=== PATIENT | male | born 1965 ===

== ENCOUNTER 2017-06-21 20:32 | Emergency (ER) | payer OTHER ==
[2017-06-21 20:51] VITALS: RESP 18
[2017-06-21 21:15] LABS: SQUAMOUS EPITHIAL 1 /hpf (0-5); URINE BACTERIA RARE (<OCC); URINE BILIRUBIN NEGATIVE (NEGATIVE); URINE BLOOD 3+ (NEGATIVE); URINE CALCIUM OXALATE CRYSTALS RARE /hpf (<OCC); URINE CLARITY Hazy (Clear); URINE COLOR Yellow (YELLOW); URINE GLUCOSE (UA) NORMAL (Normal); URINE LEUKOCYTE ESTERASE TRACE Leu/uL (Negative); URINE NITRATE NEGATIVE (NEGATIVE); URINE PROTEIN 1+ mg/dL (NEGATIVE)
[2017-06-21] MEDS ORDERED: Sodium Chloride 0.9% 1,000 ML IV ONE (21:33)
[2017-06-21 22:03] LABS: BASO # 0.1 K/uL (0.0-0.2); BASO % 0.5 % (0.0-2.0); EOS # 0.1 K/uL (0.0-0.7); EOS % 0.8 % (0.0-4.0); LYMPH # 1.5 K/uL (1.0-4.3); LYMPH % 9.6 % (20.0-40.0); MEAN CELL VOLUME 92.4 fL (80.0-94.0); MEAN CORPUSCULAR HEMOGLOBIN 31.4 pg (27.0-31.0); MEAN PLATELET VOLUME 8.5 fL (7.2-11.7); MONO # 0.8 K/uL (0.0-0.8); MONO % 5.3 % (0.0-10.0); NEUT % 83.8 % (50.0-75.0); PLATELET COUNT 258 K/uL (130-400); RBC 4.48 Mil/uL (4.40-5.90); RED CELL DISTRIBUTION WIDTH 13.2 % (11.5-14.5); WHITE BLOOD COUNT 15.5 K/uL (4.8-10.8)
[2017-06-21 22:04] LABS: HEMOGLOBIN 14.1 g/dL (12.0-18.0)
[2017-06-21 22:13] LABS: ALB/GLOB RATIO 1.3 (1.0-2.1); ALBUMIN 4.4 g/dL (3.5-5.0); ALT/SGPT 40 U/L (21-72); AST/SGOT 28 U/L (17-59); BLOOD UREA NITROGEN 11 mg/dL (9-20); CALCIUM 9.4 mg/dl (8.6-10.4); GFR AFRICAN-AMERICAN > 60; GFR NON-AFRICAN AMERICAN > 60; LIPASE 100 U/L (23-300)
[2017-06-21] MEDS ORDERED: Sodium Chloride 0.9% 1,000 ML IV STA (22:27)
[2017-06-21 22:32] LABS: BANDS 1 % (0-2); EOSINOPHIL 1 % (0-4); HYPOCHROMIC SLIGHT; LYMPHOCYTE 13 % (20-40); MONOCYTE 2 % (0-10); NEUTROPHIL 83 % (50-75); PLATELET ESTIMATE NORMAL (NORMAL); TOTAL CELLS COUNTED 100
--- NOTE | 2017-06-21 22:36 | CT ---
EXAM: CT Abdomen and Pelvis Without Intravenous Contrast CLINICAL HISTORY: 51 years old, male; Pain; Abdominal pain; Localized; Right; Additional info: Suspect r renal colic vs ap TECHNIQUE: Axial computed tomography images of the abdomen and pelvis without intravenous contrast. All CT scans at this facility use one or more dose reduction techniques, viz.: automated exposure control; ma/kV adjustment per patient size (including targeted exams where dose is matched to indication; i.e. head); or iterative reconstruction technique. Coronal and sagittal reformatted images were created and reviewed. COMPARISON: No relevant prior studies available. FINDINGS: Limitations: Motion artifact - mild. Lack of intravenous contrast. Lower thorax: Probable small hiatal hernia. Elevated LEFT hemidiaphragm. ABDOMEN: Liver: Unremarkable. Gallbladder and bile ducts: No calcified stones. No ductal dilation. Pancreas: Unremarkable. No ductal dilation. Spleen: No splenomegaly. Adrenals: No mass. Kidneys and ureters: Mild stranding about RIGHT kidney. Small calculus within RIGHT kidney. [id number] pelvocaliectasis of RIGHT kidney. Mild to moderately dilated RIGHT ureter. 0.4 x 0.4 x 0.3 cm calculus at/near RIGHT ureterovesical junction. Stomach and bowel: Segmental areas of probable underdistention of colon. No definite mural thickening. No obstruction. Appendix: Normal caliber. No inflammation. PELVIS: Bladder: Apparent mild bladder wall thickening. Incomplete distention, limiting evaluation. No stones. Reproductive: Unremarkable as visualized. ABDOMEN and PELVIS: Intraperitoneal space: No significant fluid collection. No free air. Bones/joints: No acute fracture. Soft tissues: Unremarkable. Vasculature: Minimal atherosclerotic disease of aorta. No aneurysm. Lymph nodes: No pathologically enlarged lymph nodes. IMPRESSION: 1. RIGHT distal ureteral calculus with [id number] hydroureteronephrosis. 2. Mild bladder wall thickening versus underdistention. Clinical correlation is needed. 3. Incidental/non-acute findings are described above.
[2017-06-21] MEDS ORDERED: Sodium Chloride 0.9% 1,000 ML ONE (22:45)
--- NOTE | 2017-06-21 23:08 | C.PDOC ---
History Of Present Illness 51yo male, presents to ED for evaluation of right sided abdominal pain radiating to his right groin. Patient states pain is colicky in nature and is severe at times. He denies any history of renal colic. No other medical complaints. Time Seen by Provider: 06/21/17 21:24 Chief Complaint (Nursing): Abdominal Pain History Per: Patient History/Exam Limitations: no limitations Onset/Duration Of Symptoms: Persistent Location Of Pain/Discomfort: RUQ, RLQ Radiation Of Pain To:: Other (right groin) Quality Of Discomfort: "Pain" Past Medical History Reviewed: Historical Data, Nursing Documentation, Vital Signs Vital Signs: Last Vital Signs Temp 98.4 F 06/21/17 20:47 Pulse 69 06/21/17 20:47 Resp 18 06/21/17 20:47 BP 143/92 H 06/21/17 20:47 Pulse Ox 96 06/21/17 23:57 - Medical History PMH: No Chronic Diseases Surgical History: No Surg Hx - [facility] Procedures REPOSITION RIGHT TIBIA WITH INT FIX, OPEN APPROACH (03/27/16) Family History: States: Unknown Family Hx - Social History Hx Tobacco Use: No Hx Alcohol Use: Yes Hx Substance Use: No - Immunization History Hx Tetanus Toxoid Vaccination: No Hx Influenza Vaccination: No Hx Pneumococcal Vaccination: No Review Of Systems Except As Marked, All Systems Reviewed And Found Negative. Constitutional: Negative for: Fever, Chills Gastrointestinal: Positive for: Abdominal Pain Genitourinary: Positive for: Other (right sided groin pain) Physical Exam - Physical Exam Appears: Non-toxic, Other (writhing in bed) Skin: Warm, Dry Eye(s): bilateral: Normal Inspection Neck: Supple Chest: Symmetrical Cardiovascular: Rhythm Regular Respiratory: Normal Breath Sounds Gastrointestinal/Abdominal: Bowel Sounds, Soft, No Tenderness Back: No CVA Tenderness, No Vertebral Tenderness Male Genital: Normal Inspection, No Other (groin tenderness) Neurological/Psych: Oriented x3 ED Course And Treatment - Laboratory Results Result Diagrams: 06/21/17 21:33 06/21/17 22:04 Lab Interpretation: Abnormal (UA 281 RBC's) O2 Sat by Pulse Oximetry: 96 (RA) Pulse Ox Interpretation: Normal - CT Scan/US CT ABd/Pelvis Other Rad Studies (CT/US): Interpreted By Me (R distal UVJ stone 4mm), Radiology Report Reviewed Progress Note: IVF, toradol IV Reevaluation Time: 23:43 Reassessment Condition: Improved Medical Decision Making Medical Decision Making: Impression: first episode of renal colic Plan: -- Toradol 30mg IVP -- IV Fluids -- Labs -- CT Abdomen w/o contrast FINDINGS: Limitations: Motion artifact - mild. Lack of intravenous contrast. Lower thorax: Probable small hiatal hernia. Elevated LEFT hemidiaphragm. ABDOMEN: Liver: Unremarkable. Gallbladder and bile ducts: No calcified stones. No ductal dilation. Pancreas: Unremarkable. No ductal dilation. Spleen: No splenomegaly. Adrenals: No mass. Kidneys and ureters: Mild stranding about RIGHT kidney. Small calculus within RIGHT kidney. Kbef-nl-ejxqaris pelvocaliectasis of RIGHT kidney. Mild to moderately dilated RIGHT ureter. 0.4 x 0.4 x 0.3 cm calculus at/near RIGHT ureterovesical junction. Stomach and bowel: Segmental areas of probable underdistention of colon. No definite mural thickening. No obstruction. Appendix: Normal caliber. No inflammation. PELVIS: Bladder: Apparent mild bladder wall thickening. Incomplete distention, limiting evaluation. No stones. Reproductive: Unremarkable as visualized. ABDOMEN and PELVIS: Intraperitoneal space: No significant fluid collection. No free air. Bones/joints: No acute fracture. Soft tissues: Unremarkable. Vasculature: Minimal atherosclerotic disease of aorta. No aneurysm. Lymph nodes: No pathologically enlarged lymph nodes. IMPRESSION: 1. RIGHT distal ureteral calculus with [id number] hydroureteronephrosis. 2. Mild bladder wall thickening versus underdistention. Clinical correlation is needed. 3. Incidental/non-acute findings are described above. Disposition Doctor Will See Patient In The: Office Counseled Patient/Family Regarding: Diagnosis - Disposition Referrals: [facility] at [facility] [Outside] Gael Rico MD [Staff Provider] - Non [facility] Provider, [Primary Care Provider] - Disposition: HOME/ ROUTINE Disposition Time: 23:43 Condition: GOOD Additional Instructions: amita fam agua Ibuprofeno 600 mg cada 6 horas lashaun necessario todas las orinas- pasa por un "strainer" buscando la ronnie Sigue con la [facility], O' con Dr. Duncan- [facility]. Prescriptions: traMADol [Ultram] 50 mg PO Q6H PRN #10 tab PRN Reason: pain Instructions: Renal Colic (ED) Forms: [employer] ([employer]wana) Print Language: DANISH - Clinical Impression Clinical Impression: Renal colic on right side - Scribe Statement The provider has reviewed the documentation as recorded by the Scribe (Minerva Roger) Provider Attestation: All medical record entries made by the Scribe were at my direction and personally dictated by me. I have reviewed the chart and agree that the record accurately reflects my personal performance of the history, physical exam, medical decision making, and the department course for this patient. I have also personally directed, reviewed, and agree with the discharge instructions and disposition.
[2017-06-22 00:33] VITALS: BP 123/86; PULSE 83; TEMP 98.2; O2SAT 98
== END 2017-06-22 00:35 | disposition home or self-care (01) ==
LOC: SUPCPDRO 20:32 → C.ER 20:32
DX: N13.2 Hydronephrosis with renal and ureteral calculous obstruction (principal)
CPT/HCPCS: 74176; 80053; 81001; 83690; 85025; 96361; 96374; 99284; J1885; J7040

== ENCOUNTER 2017-08-09 19:54 | Emergency (ER) | payer OTHER ==
[2017-08-09] MEDS ORDERED: Tmp-Smz 800 mg-160 mg DS Tab PO STA (21:06)
--- NOTE | 2017-08-09 21:12 | C.PDOC ---
History Of Present Illness 51 year old male presents to the ED with a complaint of a painful lump to the back of the neck beginning two days ago. Patient reports he has a history of similar symptoms last year but was able to pop/drain the abscess on his own. Patient states he tried to drain this one but it became more swollen. Denies fever, drainage, numbness, or weakness. Time Seen by Provider: 08/09/17 20:26 Chief Complaint (Nursing): Abnormal Skin Integrity History Per: Patient History/Exam Limitations: no limitations Onset/Duration Of Symptoms: Days (x 2 ) Current Symptoms Are (Timing): Still Present Location Of Injury: Posterior: Neck Quality Of Symptoms: Painful Past Medical History Reviewed: Historical Data, Nursing Documentation, Vital Signs Vital Signs: Last Vital Signs Temp 98.5 F 08/09/17 21:33 Pulse 70 08/09/17 21:33 Resp 14 08/09/17 21:33 BP 120/70 08/09/17 21:33 Pulse Ox 99 08/09/17 21:33 - Medical History PMH: Kidney Stones, Chronic Kidney Disease - [facility] Procedures REPOSITION RIGHT TIBIA WITH INT FIX, OPEN APPROACH (03/27/16) Family History: States: Unknown Family Hx - Social History Hx Tobacco Use: No Hx Alcohol Use: Yes Hx Substance Use: No - Immunization History Hx Tetanus Toxoid Vaccination: No Hx Influenza Vaccination: No Hx Pneumococcal Vaccination: No Review Of Systems Except As Marked, All Systems Reviewed And Found Negative. Constitutional: Negative for: Fever Musculoskeletal: Positive for: Neck Pain (abscess located on the back ) Neurological: Negative for: Weakness, Numbness Physical Exam - Physical Exam Appears: Non-toxic, No Acute Distress Skin: Normal Color, Warm, Dry Head: Atraumatic, Normacephalic Eye(s): bilateral: Normal Inspection Oral Mucosa: Moist Throat: Normal Neck: Normal ROM, Other (2 x 3 cm area erythema, swelling, tenderness with positive induration to left posterior neck) Lymphatic: No Adenopathy Respiratory: Normal Breath Sounds, No Rales, No Rhonchi, No Wheezing Extremity: Normal ROM Neurological/Psych: Oriented x3, Normal Speech, Normal Motor, Normal Sensation Gait: Steady ED Course And Treatment O2 Sat by Pulse Oximetry: 96 (RA) Pulse Ox Interpretation: Normal Medical Decision Making Medical Decision Making: Bactrim, keflex, ibuprofen ordered. Patient discharged on antibiotics, instructed to apply warm compress 4-5 times a day to the area. Disposition - Disposition Referrals: [facility] at [facility] [Outside] Disposition: HOME/ ROUTINE Disposition Time: 21:10 Condition: GOOD Additional Instructions: Apply warm compresses to the region 4-5 times per day. Return in 2 days for possible I&D. Prescriptions: Cephalexin [Keflex] 500 mg PO BID #19 capsule Ibuprofen [Motrin] 600 mg PO TID #21 tab Sulfamethoxazole/Trimethoprim [Bactrim DS 800 mg-160 mg] 1 tab PO BID #14 tab Instructions: Skin Abscess Forms: [employer] (Mongolian) Print Language: CROATIAN - Clinical Impression Clinical Impression: Skin abscess - Scribe Statement The provider has reviewed the documentation as recorded by the Joleenibmarj Ramirez All medical record entries made by the Joleenibmarj were at my direction and personally dictated by me. I have reviewed the chart and agree that the record accurately reflects my personal performance of the history, physical exam, medical decision making, and the department course for this patient. I have also personally directed, reviewed, and agree with the discharge instructions and disposition.
[2017-08-09] MEDS ORDERED: Tmp-Smz 800 mg-160 mg DS Tab ONE (21:13)
[2017-08-09 21:34] VITALS: BP 120/70; PULSE 70; RESP 14; TEMP 98.5
[2017-08-09 22:33] VITALS: O2SAT 96
== END 2017-08-09 21:33 | disposition home or self-care (01) ==
LOC: C.ER 19:54
DX: L02.212 Cutaneous abscess of back [any part, except buttock and flank] (principal)